=== PATIENT | female | born 1990 | race Caucasian/White ===

== ENCOUNTER 2018-06-14 06:21 | Day surgery (SDC) | payer OTHER ==
[2018-06-14] VITALS (15 sets, daily range): BP systolic 107–147; BP diastolic 62–99; PULSE 16–140; RESP 13–60; Ht 157.5 cm; Wt 83.7 kg
[~2018-06-14] VITALS: Ht 157.5 cm; Wt 83.7 kg
[2018-06-14] MEDS ORDERED: SOD CHLORIDE 0.9% 1,000 ML IV ONE (07:00)
[2018-06-14] MEDS ORDERED: CEFAZOLIN 2 GM/50 ML (PMX) 50 ML IVPB ONE (07:00)
--- NOTE | 2018-06-14 08:12 | PREAC ---
Date/Time of Note Date/Time of Note DATE: 06/14/18 TIME: 08:11 Anesthesia Eval and Record Evaluation Time Pre-Procedure Interview DATE: 06/14/18 TIME: 08:11 Age 27 Sex female NPO: 8 hrs Preoperative diagnosis cholelithiasis Planned procedure laparoscopic cholecystectomy Past Medical History Past Medical History: Includes GI: Obesity Surgery & Anesthesia Issues No known issue Meds Anticoagulation: No Beta Chichi within 24 hr: No Reason Beta Chichi not given: Pt. not on B-Chichi No Active Prescriptions or Reported Meds Current Medications Sodium Chloride 1,000 ml @ 75 mls/hr [id number] ONCE IV Last administered on 06/14/18at 07:30; Admin Dose 75 MLS/HR; Start 06/14/18 at 07:00; Stop 06/14/18 at 20:19 Meds reviewed: Yes Allergies Coded Allergies: No Known Allergy (Unverified , 06/14/18) Allergies Reviewed: Yes Labs/Studies Labs Reviewed: Reviewed by anesthesiologist test: Negative Pre-procedure Exam Last vitals Vital Signs Date Temp Pulse Resp B/P (MAP) Pulse Ox O2 O2 Flow FiO2 Time Delivery Rate 06/14/18 98.0 16 16 108/62 100 07:36 (77) Airway: Adequate mouth opening, Adequate thyromental dist Mallampati: Mallampati II Teeth: Normal Lung: Normal Heart: Normal ASA Physical Status ASA physical status: 1 Emergency: None Planned Anesthetic General/MAC: ETT Planned Pain Management Parenteral pain med Pre-operative Attestations Prior to commencing anesthesia and surgery, the patient was re-evaluated, there was verification of: *The patient's identity *The results of appropriate recent lab work and preoperative vital signs *The above evaluation not changing prior to induction *Anesthetic plan, risk benefits, alternative and complications discussed with patient/family; questions answered; patient/family understands, accepts and wishes to proceed. ANTHONY ANNE Jun 14, 2018 08:12
[2018-06-14] MEDS ORDERED: FENTAnyl 50 MCG/ML VIAL ONE (08:24)
[2018-06-14] MEDS ORDERED: ROCURONIUM 50 MG INJ ONE (08:24)
[2018-06-14] MEDS ORDERED: PROPOFOL 100 ML ONE (08:24)
[2018-06-14] MEDS ORDERED: LIDOCAINE 2% (SDV) 5 ML INJ ONE (08:24)
[2018-06-14] MEDS ORDERED: CEFAZOLIN 1 GM INJ ONE (08:33)
[2018-06-14] MEDS ORDERED: ONDANSETRON 4 MG INJ ONE (08:36)
[2018-06-14] MEDS ORDERED: DEXAMETHASONE 4 MG/ML 5 ML INJ ONE (08:36)
[2018-06-14] MEDS ORDERED: BUPIVACAINE 0.25% (MPF) 30 ML INJ ONE (08:38)
[2018-06-14] MEDS ORDERED: NEOSTIGMINE 3 MG/3 ML SYRINGE ONE (08:52)
[2018-06-14] MEDS ORDERED: GLYCOPYRROLATE 0.4 MG INJ ONE (08:53)
[2018-06-14] MEDS ORDERED: HYDROCODONE/APAP (5/325) TAB PO ONE (09:00)
--- NOTE | 2018-06-14 09:06 | OPR ---
Date/Time of Note Date/Time of Note DATE: 06/14/18 TIME: 09:04 Operative Report Procedure Date: Jun 14, 2018 Preoperative Diagnosis symptomatic gallstones Postoperative Diagnosis same Operation/Procedure Performed laparoscopic cholecystectomy Surgeon see signature line Belly Dancer emmie Miles Anesthesia Type: general Estimated Blood Loss: 10 - 50 ml's Transfusion none Specimen gallbladder Grafts/Implants none Complications none Pt Condition Post Procedure: stable Indications This is a 27-year-old female with symptomatic gallstones. She required surgical excision of her gallbladder. Risks alternatives benefits and personal were discussed the patient. Patient expressed understanding consents to the operation. Procedure Description Patient is taken to the OR and prepped and draped in usual sterile fashion. Surgical time was performed. IV antibiotics given. Infraumbilical transverse incision at the 15 blade. Dissection with cautery against the fascia. The fascia was grasped with Nino is divided with curved masses. 0 Vicryl stitch was placed into the fascia. Hale trocar was introduced. Pneumoperitoneum was established. Midepigastric 12 mm optical trochars placed under direct physician. Right upper quadrant upper flank 5 mm optical trochars placed in direct position. Upon initial inspection there are some adhesions to the gallbladder. The gallbladder is grasped with the fundus and retracted in a lateral cephalad direction. [place] graspers were used to dissect out the cystic duct and cystic artery. The critical view was established. The cystic duct is divided to close proximal to distal and cystic artery was divided to close proximal clip distal and the divisions were performed lap scopic scissors. The gallbladder was taken of the gallbladder bed. Good hemostasis established in the gallbladder bed. The gallbladder is retrieved using Endo Catch bag. Minimal suction irrigation was used. Overdiuresis tied down after all ports were removed under direct physician. Skin is closed and skin eliane. Therap eutic contains local anesthesia was injected at the incision site. Dry dressings were applied. Brittanie GOMEZ Jun 14, 2018 09:06
[2018-06-14] MEDS ORDERED: HYDROmorphONE 1 MG/5 ML IV SYRINGE IV ONE (09:10)
--- NOTE | 2018-06-14 09:10 | PAC ---
Date/Time of Note Date/Time of Note DATE: 06/14/18 TIME: 09:09 Post-Anesthesia Notes Post-Anesthesia Note Last documented vital signs Vital Signs Date Temp Pulse Resp B/P (MAP) Pulse Ox O2 O2 Flow FiO2 Time Delivery Rate 06/14/18 98.0 16 16 108/62 100 0908 (77) Activity: WNL Respiratory function: WNL Cardiovascular function: WNL Mental status: Baseline Pain reasonably controlled: Yes Hydration appropriate: Yes Nausea/Vomiting absent: Yes ANTHONY ANNE Jun 14, 2018 09:10
[2018-06-14] MEDS ORDERED: MEPERIDINE 25 MG INJ ONE (09:18)
[2018-06-14] MEDS ORDERED: MIDAZOLAM 1 MG/ML 2 ML INJ IV PRN (09:30)
[2018-06-14] MEDS ORDERED: ALBUTEROL 0.083% (NEB) 2.5 MG/3 ML AMP HHN PRN (09:30)
[2018-06-14] MEDS ORDERED: EPHEDrine SULFATE 50 MG/5 ML SYG IV PRN (09:30)
[2018-06-14] MEDS ORDERED: ONDANSETRON 4 MG INJ IV PRN (09:30)
[2018-06-14] MEDS ORDERED: FENTAnyl 50 MCG/ML VIAL IV PRN ×3 (09:30)
[2018-06-14] MEDS ORDERED: HYDROmorphONE 1 MG/5 ML IV SYRINGE IV PRN ×3 (09:30)
[2018-06-14] MEDS ORDERED: hydrALAzine 20 MG INJ IV PRN (09:30)
[2018-06-14] MEDS ORDERED: DIPHENHYDRAMINE 50 MG INJ IV PRN (09:30)
[2018-06-14] MEDS ORDERED: KETOROLAC 30 MG INJ IV PRN (09:30)
[2018-06-14] MEDS ORDERED: METOCLOPRAMIDE 10 MG INJ IV PRN (09:30)
[2018-06-14] MEDS ORDERED: LABETALOL HCL 20MG INJ IV PRN (09:30)
[2018-06-14] MEDS ORDERED: OXYCODONE/ACETAMINOPHEN (5/325) TAB PO PRN ×2 (09:30)
[2018-06-14] MEDS ORDERED: MEPERIDINE 25 MG INJ IV PRN (09:30)
== END 2018-06-14 11:01 | disposition home or self-care (01) ==
LOC: SDS 06:21
PROVIDERS: ATTEND Surgery
DX: K80.10 Calculus of gallbladder with chronic cholecystitis without obstruction (principal)
CPT/HCPCS: 47562; 84703; J0690; J1100; J1170; J2175; J2405; J2710; J3010; 88304